=== PATIENT | male | born 1990 | race African-American/Black ===

== ENCOUNTER 2023-12-06 22:24 | Emergency (ER) | payer MEDICAID, OTHER ==
[~2023-12-06] VITALS: Ht 177.8 cm; Wt 107.0 kg
[~2023-12-06 22:24] MED LIST: BIOT25008; DOCU-138; IBUPROFEN; LORA-250; [UNRECOGNIZED DRUG - OTHER]; [UNRECOGNIZED DRUG - OTHER]
[2023-12-06] MEDS ORDERED: DIPH25CA83 MT (22:30)
[2023-12-06 22:35] VITALS: BP 155/91; PULSE 99; RESP 18; TEMP 99.2; O2SAT 98
== END 2023-12-06 23:51 | disposition home or self-care (01) ==
LOC: ER 22:24
DX: G47.00 Insomnia, unspecified (principal); Z79.899 Other long term (current) drug therapy
CPT/HCPCS: 99283

== ENCOUNTER 2024-01-08 22:55 | Emergency (ER) | payer MEDICAID, OTHER ==
[~2024-01-08] VITALS: Ht 188 cm; Wt 110.0 kg
[~2024-01-08 22:55] MED LIST changes: +DIPH25CA83 MT
[2024-01-08 23:00] VITALS: BP 155/92; PULSE 102; RESP 16; TEMP 97.7; O2SAT 97
[2024-01-08] MEDS: QUETIAPINE FUMARATE 50MG TABLET PO STA (23:23)
== END 2024-01-09 01:54 | disposition home or self-care (01) ==
LOC: ER 22:55
DX: G47.00 Insomnia, unspecified (principal); E11.9 Type 2 diabetes mellitus without complications; I10 Essential (primary) hypertension; F20.9 Schizophrenia, unspecified
CPT/HCPCS: 99283; Z7610